=== PATIENT | female | born 1945 | race Caucasian/White ===

== ENCOUNTER → 2021-12-16 | Outpatient (CLI) | payer MEDICARE, BC ==
[~2021-12-16] MED LIST: ALLER-EASE180 MG PO; ALPRAZOLAM0.5 MG PO; COLACE100 MG PO; DRIZALMA SPRINK60 MG PO; GABAPENTIN300 MG PO; HYDROCODON-ACE1 EAC2 PO; LIPITOR TAB 1010 MG PO; TENORMIN 25 MG25 MG PO
== END ==
LOC: HEART CORB 09:30
DX: I48.91 Unspecified atrial fibrillation (principal); I08.3 Combined rheumatic disorders of mitral, aortic and tricuspid valves
CPT/HCPCS: 93306

== ENCOUNTER 2022-04-04 17:28 | Inpatient (IN) | payer MEDICARE, BC ==
[~2022-04-04] VITALS: Ht 154.9 cm; Wt 52.2 kg
[2022-04-04 18:12] LABS: HEMOGLOBIN 14.5 gm/dl (12.3-15.3); RED BLOOD COUNT 4.87 M/UL (4.00-5.10)
[2022-04-04] MEDS ORDERED: ELIQUIS2.5 MG PO (23:11)
[2022-04-04] MEDS ORDERED: B12 ACTIVE1000 MCG INJ (23:13)
[2022-04-04] MEDS ORDERED: PROAIR HFA8.5 GM INH (23:14)
[2022-04-04] MEDS ORDERED: WELLBUTRIN SR100 MG PO (23:15)
[2022-04-04] MEDS ORDERED: BUSPAR 10MG10 MG PO (23:16)
[2022-04-04] MEDS ORDERED: KLONOPIN1 MG PO (23:17)
[2022-04-04] MEDS ORDERED: DOXEPIN HCL3 MG PO (23:18)
[2022-04-04] MEDS ORDERED: ZOLOFT100 MG PO (23:19)
[2022-04-04] MEDS ORDERED: TOPROL XL 25 MG25 MG PO (23:19)
[2022-04-04] MEDS ORDERED: COZAAR50 MG PO (23:20)
[2022-04-04] MEDS ORDERED: ALLEGRA ALLERG180 MG PO (23:21)
[2022-04-04] MEDS ORDERED: HYDROCODON-ACE1 EAC2 PO (23:21)
[2022-04-04] MEDS ORDERED: FLECAINIDE ACET50 MG PO (23:23)
[2022-04-04] MEDS ORDERED: CHOLESTYRAMINE378 GM PO (23:26)
[2022-04-05 01:32] LABS: HEMOGLOBIN 12.9 gm/dl (12.3-15.3); WHITE BLOOD COUNT 8.4 K/UL (4.5-11.0)
[2022-04-05 01:36] LABS: RED BLOOD COUNT 4.36 M/UL (4.00-5.10)
[2022-04-05 03:08] LABS: BUN/CREATININE RATIO 20 (0-10)
[2022-04-06 02:07] LABS: RED BLOOD COUNT 4.13 M/UL (4.00-5.10)
[2022-04-07 02:10] LABS: HEMOGLOBIN 11.4 gm/dl (12.3-15.3); RED BLOOD COUNT 3.92 M/UL (4.00-5.10); WHITE BLOOD COUNT 9.7 K/UL (4.5-11.0)
[2022-04-07] MEDS ORDERED: CEPHALEXIN500 M1 PO (09:11)
[2022-04-07] MEDS ORDERED: CLEOCIN HCL300 MG PO (09:11)
[2022-04-08 02:18] LABS: HEMOGLOBIN 10.8 gm/dl (12.3-15.3); RED BLOOD COUNT 3.67 M/UL (4.00-5.10); WHITE BLOOD COUNT 8.5 K/UL (4.5-11.0)
[2022-04-08 02:43] LABS: BUN/CREATININE RATIO 16 (0-10)
[2022-04-08] MEDS ORDERED: BETAPACE 80MG T80 MG PO (11:45)
[2022-04-08] MEDS ORDERED: IPRATROPIU0.2 MG/1 M NEB (11:50)
[2022-04-08] MEDS ORDERED: BUDESONIDE0.5 MG/2 M NEB (11:50)
[2022-04-08] MEDS ORDERED: XOPENEX0.63 MG/3 INH ×2 (11:50→12:08)
[2022-04-08] MEDS ORDERED: ELIQUIS 2.5 MG2.5 MG PO (12:08)
== END 2022-04-08 12:49 | disposition home or self-care (01) | DRG 243 ==
LOC: ER1 17:28 → CDU 18:29 → PROG CARE 18:29
PROVIDERS: Emergency Medicine; Internal Medicine; ADMIT Internal Medicine
PROC: 0JH606Z Insertion of Pacemaker, Dual Chamber into Chest Subcutaneous Tissue and Fascia, Open Approach (ICD-10-PCS; principal; 2022-04-07)
PROC: 02H63JZ Insertion of Pacemaker Lead into Right Atrium, Percutaneous Approach (ICD-10-PCS; 2022-04-07)
PROC: 02HK3JZ Insertion of Pacemaker Lead into Right Ventricle, Percutaneous Approach (ICD-10-PCS; 2022-04-07)
PROC: 5A2204Z Restoration of Cardiac Rhythm, Single (ICD-10-PCS; 2022-04-07)
DX: I49.5 Sick sinus syndrome (principal); F11.20 Opioid dependence, uncomplicated; I44.2 Atrioventricular block, complete; Z20.822 Contact with and (suspected) exposure to COVID-19; K21.9 Gastro-esophageal reflux disease without esophagitis; E78.5 Hyperlipidemia, unspecified; F32.A Depression, unspecified; I73.9 Peripheral vascular disease, unspecified; I48.0 Paroxysmal atrial fibrillation; Z96.698 Presence of other orthopedic joint implants; J44.9 Chronic obstructive pulmonary disease, unspecified; G89.4 Chronic pain syndrome; F10.10 Alcohol abuse, uncomplicated; F17.210 Nicotine dependence, cigarettes, uncomplicated; Z99.81 Dependence on supplemental oxygen; Z90.49 Acquired absence of other specified parts of digestive tract; Z86.73 Personal history of transient ischemic attack (TIA), and cerebral infarction without residual deficits; Z79.01 Long term (current) use of anticoagulants
CPT/HCPCS: 0241U; 33208; 36415; 71045; 80048; 80053; 80061; 82533; 82550; 82553; 83036; 83735; 84439; 84443; 84484; 85025; 85610; 85730; 92960; 93005; 94760; 99152; 99153; 99285; C1898; C2621; J1250; J1644; J2250; J3010; J3370; J7040; J7050; J7070; Q9965